=== PATIENT | female | born 1965 | race American Indian/Alaskan Native ===

== ENCOUNTER → 2018-04-02 10:12 | Outpatient (CLI) | payer MEDICAID, SELFPAY ==
--- NOTE | 2018-04-02 | DI.MG.S_ITS ---
BILATERAL DIGITAL SCREENING MAMMOGRAM 3D/2D WITH CAD: 04/02/2018 CLINICAL: Baseline exam. Routine screening. No prior exams were available for comparison. The tissue of both breasts is heterogeneously dense. This may lower the sensitivity of mammography. Current study was also evaluated with a Computer Aided Detection (CAD) system. No significant masses, calcifications, or other findings are seen in either breast. IMPRESSION: NEGATIVE There is no mammographic evidence of malignancy. A 1 year screening mammogram is recommended. This exam was interpreted at Station ID: [id number]. NOTE: For mammograms, a report in lay terms will be sent to the patient. Approximately 15% of breast malignancies will not be visualized mammographically. In the management of a palpable breast mass, a negative mammogram must not discourage biopsy of a clinically suspicious lesion. Electronically Signed By: Tanya peguero/jean claude:04/04/2018 08:33:04 letter sent: Normal Exam ACR BI-RADS Category 1: Negative [id number]
== END ==
PROVIDERS: PCP Family Medicine; Visit Provider Family Medicine
DX: Z12.31 Encounter for screening mammogram for malignant neoplasm of breast (principal)
CPT/HCPCS: 77063; 77067

== ENCOUNTER → 2022-03-25 17:33 | Outpatient (CLI) | payer OTHER, MEDICAID, SELFPAY ==
--- NOTE | 2022-03-25 17:37 | DI.RAD.S_ITS ---
PROCEDURE: XR ABDOMEN 1V INDICATIONS: ABDOMINAL PAIN TECHNIQUE: One view of the abdomen acquired. COMPARISON: None. FINDINGS: Surgical changes and devices: Cholecystectomy clips. Clips in the right pelvis. Suture material in the pelvis. Right lower quadrant ostomy. Bowel: Scattered small bowel gas. No dilated loops of small bowel identified. Stomach is not distended. Soft tissues: No suspicious abdominal calcifications. Visualized solid organ contours appear normal in size. Bones: No suspicious bony lesions. IMPRESSION: Nonobstructive bowel gas pattern. Dictated by: Lenny Dela Cruz M.D. on 03/26/2022 at 8:07 Approved by: Lenny Dela Cruz M.D. on 03/26/2022 at 8:08
[2022-03-25 17:55] LABS: Add Manual Diff / Slide Review NO; Basophils Absolute Auto 0 /uL (0-100); Basophils Percent Auto 0.8 % (0-2); Eosinophils Absolute Auto 100 /uL (0-450); Eosinophils Percent Auto 2.2 % (2-4); Hematocrit 42.6 % (36-46); Lymphocytes Absolute Auto 1000 /uL (1100-4500); Lymphocytes Percent Auto 23.4 % (25-40); Mean Corpuscular HGB Conc 35.2 % (30-36); Mean Corpuscular Hemoglobin 31.3 PG (26-34); Monocytes Absolute Auto 500 /uL (0-900); Monocytes Percent Auto 10.7 % (3-14); Neutrophils Absolute Auto 2600 /uL (1500-7000); Neutrophils Percent Auto 62.9 % (50-75); Platelet Count 199 X10^3/uL (150-400); Red Blood Cell Count 4.79 X10^6/uL (4.0-5.2); Red Cell Distribution Width 12.8 % (11.6-14.8); White Blood Cell Count 4.2 X10^3/uL (4.5-11.0)
[2022-03-25 18:04] LABS: Prothrombin Time 11.2 SECONDS (10.1-12.7)
[2022-03-25 18:07] LABS: PTT Partial Thromboplastin Tim 32 SECONDS (26-36)
[2022-03-25 18:20] LABS: Erythrocyte Sedimentation Rate 9 MM/HR (0-20)
[2022-03-25 18:33] LABS: Alanine Aminotransferase 253 IU/L (<35); Albumin 4.5 g/dL (3.5-5.0); Albumin Globulin Ratio 1.3 (1.0-2.8); Alkaline Phosphatase 75 U/L (38-126); Aspartate Aminotransferase 160 IU/L (14-36); BUN Creatinine Ratio 12.2 (6-22); Bilirubin Total 0.6 mg/dL (0.2-1.3); Blood Urea Nitrogen 12 mg/dL (7-17); Calcium 9.8 mg/dL (8.4-10.2); Carbon Dioxide 31 mmol/L (22-32); Chloride 102 mmol/L (98-107); Estimated Glomerular Filt Rate > 60 mL/min (>60); Gamma Glutamyl Transpeptidase 44 U/L (12-43); Globulin 3.4 g/dL (1.7-4.1); Glucose 110 mg/dL (70-100); HEMOLYSIS < 15 (0-50); Potassium 4.1 mmol/L (3.4-5.1); Sodium 140 mmol/L (137-145); Total Protein 7.9 g/dL (6.3-8.2)
[2022-03-25 18:34] LABS: Transferrin 244 mg/dL (206-381)
[2022-03-25 19:08] LABS: Ferritin 393 ng/mL (11-264)
[2022-03-25 19:22] LABS: Vitamin B12 541 pg/mL (239-931)
[2022-03-27 13:12] LABS: ANA Screen, IFA Negative (.)
== END ==
PROVIDERS: PCP Family Medicine; Referring Provider Family Medicine; Visit Provider Family Medicine
DX: R10.84 Generalized abdominal pain (principal)
CPT/HCPCS: 36415; 74018; 80053; 82607; 82728; 82977; 84466; 85025; 85610; 85651; 85730; 86038

== ENCOUNTER → 2022-03-27 06:52 | Outpatient (CLI) | payer BC, MEDICAID, SELFPAY ==
--- NOTE | 2022-03-27 06:53 | DI.US.S_ITS ---
PROCEDURE: US ABDOMEN COMPLETE INDICATIONS: GENERALIZED PAIN TECHNIQUE: Real-time scanning was performed of the abdominal and retroperitoneal organs, with image documentation. COMPARISON: [facility], CR, XR ABDOMEN 1V, 03/25/2022, 17:56. FINDINGS: Liver: The liver demonstrates minimally increased size. The liver demonstrates generalized moderately increased echogenicity. This decreases ultrasound sensitivity for detection of hepatic masses. However, within the left liver, there is a nonvascular area of relative hypoechogenicity that measures 4.5 x 5.6 x 2.4 cm. Gallbladder: Removed. Biliary ducts: Intrahepatic bile ducts are non-dilated. Extrahepatic bile duct caliber measures 8 mm. Normal is 6-7 mm or less in diameter, or 10 mm or less post-cholecystectomy. Pancreas: Visualized portions of the pancreas are sonographically normal. Spleen: Spleen is normal in size and homogeneous in echotexture. Kidneys: Kidneys are normal in size and echotexture. Right kidney measures 9.4 cm long; left kidney measures 9.5 cm long. No nephrolithiasis. No solid masses. The right proximal ureter is dilated to 15.4 mm. Aorta: Visualized aorta is normal in caliber at less than 3 cm. Iliacs: Not seen, obscured by overlying bowel gas. IVC: Intrahepatic inferior vena cava is patent. Miscellaneous: No free abdominal fluid. Overall exam quality is limited, secondary to bowel gas. IMPRESSION: The right proximal ureter is dilated to 15.4 mm. If clinically appropriate, please consider follow-up dedicated CT for further evaluation. Cholecystectomy, without biliary dilatation. Generalized fatty liver. Likely fatty sparing seen within the left liver. This can be further assessed by CT. Dictated by: Abdiaziz Ceballos M.D. on 03/27/2022 at 9:14 Approved by: Abdiaziz Ceballos M.D. on 03/27/2022 at 9:16
== END ==
PROVIDERS: PCP Family Medicine; Referring Provider Family Medicine; Visit Provider Family Medicine
DX: R10.84 Generalized abdominal pain (principal); K76.0 Fatty (change of) liver, not elsewhere classified
CPT/HCPCS: 76700

== ENCOUNTER 2022-03-28 14:52 | Emergency (ER) | payer BC, MEDICAID, SELFPAY ==
[2022-03-28 14:57] VITALS: BP 140/65; PULSE 86; RESP 18; TEMP 36.7; O2SAT 98; BMI 30.2
[2022-03-28] MEDS: ONDANSETRON 4 MG/2 ML INJ IV (15:05)
[2022-03-28 15:24] LABS: Add Manual Diff / Slide Review NO; Basophils Absolute Auto 0 /uL (0-100); Basophils Percent Auto 0.7 % (0-2); Eosinophils Absolute Auto 100 /uL (0-450); Eosinophils Percent Auto 2.5 % (2-4); Hematocrit 44.3 % (36-46); Hemoglobin 15.2 g/dL (12.0-16.0); Lymphocytes Absolute Auto 1200 /uL (1100-4500); Lymphocytes Percent Auto 24.4 % (25-40); Mean Corpuscular HGB Conc 34.3 % (30-36); Mean Corpuscular Hemoglobin 30.7 PG (26-34); Mean Corpuscular Volume 89.7 fL (80-100); Monocytes Absolute Auto 600 /uL (0-900); Monocytes Percent Auto 11.1 % (3-14); Neutrophils Absolute Auto 3100 /uL (1500-7000); Neutrophils Percent Auto 61.3 % (50-75); Platelet Count 209 X10^3/uL (150-400); Red Blood Cell Count 4.94 X10^6/uL (4.0-5.2); Red Cell Distribution Width 12.7 % (11.6-14.8); White Blood Cell Count 5.1 X10^3/uL (4.5-11.0)
[2022-03-28 15:31] LABS: Alanine Aminotransferase 262 IU/L (<35); Albumin 4.3 g/dL (3.5-5.0); Albumin Globulin Ratio 1.3 (1.0-2.8); Alkaline Phosphatase 65 U/L (38-126); Aspartate Aminotransferase 174 IU/L (14-36); BUN Creatinine Ratio 17.7 (6-22); Bilirubin Total 0.7 mg/dL (0.2-1.3); Blood Urea Nitrogen 17 mg/dL (7-17); Calcium 9.5 mg/dL (8.4-10.2); Carbon Dioxide 31 mmol/L (22-32); Chloride 104 mmol/L (98-107); Estimated Glomerular Filt Rate > 60 mL/min (>60); Globulin 3.4 g/dL (1.7-4.1); Glucose 112 mg/dL (70-100); HEMOLYSIS < 15 (0-50); Lipase 113 U/L (23-300); Potassium 3.9 mmol/L (3.4-5.1); Sodium 140 mmol/L (137-145); Total Protein 7.7 g/dL (6.3-8.2)
--- NOTE | 2022-03-28 16:17 | ED.ABDPAIN ---
HPI - Abdominal Pain <Radhames Key PA-C - Last Filed: 03/28/22 20:00> General Chief Complaint: Abdominal Pain Stated Complaint: right ABD pain nausea and vomiting Time Seen by Provider: 03/28/22 16:16 Source: patient Mode of arrival: Ambulatory History of Present Illness HPI narrative: Patient is a 57-year-old female who presents to the emergency room today with complaint of right-sided abdominal pain that started on Wednesday. Started pain in right lower abdomen and states that she is up to her ribs. She also describes the pain as sharp and stabbing comes and goes. Also admits to having nausea and vomiting for the last 3 days. Patient saw her primary care provider Dr. Aguilera on . Dr. Arevalo examined her and ordered labs chest from and ultrasound. Patient stays Dr. Rodriguez called her informed her she had a kidney stone and that she should report to the emergency room if the pain continues. Also admits to having an ileostomy that was placed in 2014. Has never had this type of pain before and has not taken any medication for the pain. Related Data Previous Rx's Medication Instructions Recorded ondansetron HCl 4 mg tablet 4 mg PO Q8H #14 tabs 03/28/22 oxycodone-acetaminophen 5 mg-325 1 tab PO Q8H PRN pain #10 tabs 03/28/22 mg tablet (Percocet) Allergies Allergy/AdvReac Type Severity Reaction Status Date / Time No Known Drug Allergies Allergy Verified 03/28/22 15:04 Review of Systems <Radhames Key PA-C - Last Filed: 03/28/22 20:00> Review of Systems Narrative: R.O.S.: General: No fever, chills or fatigue. Cardiovascular: No chest pain or palpitations Respiratory: No S.O.B. HEENT: No congestion, ear pain, rhinorrhea, sore throat or tinnitus Gastrointestinal: Right-sided abdominal pain. Nausea with vomiting Skin: No rash or associated abnormalities Musculoskeletal: No pain in muscles or joints, no limitation of range of motion, no paresthesia or numbness. ?? Neurological: Awake, alert and in not apparent distress. No Headaches, changes in vision or other related neurological concerns. Patient History <Radhames Key PA-C - Last Filed: 03/28/22 20:00> Social History Smoking Status: Never smoker Smoking Status: Never smoker alcohol intake frequency: holidays/special occasions only Substance Use Type: does not use Exam <AGNIESZKA Sandoval Last Filed: 03/28/22 20:00> Narrative Exam Narrative: Physical Exam: ? General: normal appearance, well developed, well nourished, alert, and awake. Not in acute distress. ? Head: Normocephalic, no lesions. Chest: Lungs CTAB, no rales, rhonchi or wheezes. ?? Heart: RRR, no murmurs, rubs or gallops. Eyes: PERRLA, EOM's full, conjunctivae clear. ? Neuro: Physiological, no localizing findings, CN3-12 intact. ?? Extremities: Warm, well perfused, FROM, no deformities, no edema. ?? Skin: Normal, no rashes, no lesions noted. ?? PSYCHIATRIC: The mood is good, no blunted affect. Speech is clear. Thought process is linear, thought content is appropriate. The voice is without significant inflection. Gastrointestinal: Soft; tender to palpation in the right lower quadrant; positive for CVA tenderness on the right side. ND; Pos BS with Neg. rebound tenderness. No scars or major deformities noted on Visual Inspection. Initial Vital Signs Initial Vital Signs: Vital Signs Temperature 98.0 F 03/28/22 14:57 Pulse Rate 86 03/28/22 14:57 Respiratory Rate 18 03/28/22 14:57 Blood Pressure 140/65 03/28/22 14:57 Pulse Oximetry 98 03/28/22 14:57 Oxygen Delivery Method 03/28/22 14:57 <Rivera Phelps DO - Last Filed: 03/29/22 01:20> Initial Vital Signs Initial Vital Signs: Vital Signs Temperature 98.0 F 03/28/22 14:57 Pulse Rate 86 03/28/22 14:57 Respiratory Rate 18 03/28/22 14:57 Blood Pressure 140/65 03/28/22 14:57 Pulse Oximetry 98 03/28/22 14:57 Oxygen Delivery Method 03/28/22 14:57 Course <AGNIESZKA Sandoval Last Filed: 03/28/22 20:00> Orders Ordered: ED Orders 03/28/22 16:47 CT abdomen pelvis w con Stat 03/28/22 18:05 XR chest 2V Stat Discontinued Medications Sodium Chloride (Normal Saline 0.9%) 500 mls @ 1,000 mls/hr IV BOLUS ONE Stop: 03/28/22 18:32 Last Admin: 03/28/22 18:22 Dose: Not Given Documented By: WILLIE Sodium Chloride (Normal Saline 0.9%) 1,000 mls @ 1,000 mls/hr IV BOLUS ONE Stop: 03/28/22 19:07 Last Infusion: 03/28/22 19:30 Dose: 1,000 mls/hr Documented By: Admin: 03/28/22 18:20 Dose: 1,000 mls/hr Documented By: ROSS Ketorolac Tromethamine (Ketorolac 30 Mg/Ml Vial) 30 mg IV NOW ONE Stop: 03/28/22 16:47 Last Admin: 03/28/22 16:51 Dose: 30 mg Documented By: IGGY Ketorolac Tromethamine (Ketorolac 30 Mg/Ml Vial) 30 mg IV NOW ONE Stop: 03/28/22 19:48 Last Admin: 03/28/22 19:54 Dose: 30 mg Documented By: ROSS Ondansetron HCl (Ondansetron 4 Mg/2 Ml Inj) 4 mg IV NOW ONE Stop: 03/28/22 15:02 Last Admin: 03/28/22 15:05 Dose: 4 mg Documented By: IGGY Vital Signs Vital signs: Vital Signs - 8 hr 03/28/22 14:57 Temperature 98.0 F Pulse Rate 86 Respiratory Rate 18 Blood Pressure 140/65 Pulse Oximetry 98 Oxygen Delivery Method Room Air <Rivera Phelps DO - Last Filed: 03/29/22 01:20> Orders Ordered: ED Orders 03/28/22 16:47 CT abdomen pelvis w con Stat 03/28/22 18:05 XR chest 2V Stat Discontinued Medications Sodium Chloride (Normal Saline 0.9%) 500 mls @ 1,000 mls/hr IV BOLUS ONE Stop: 03/28/22 18:32 Last Admin: 03/28/22 18:22 Dose: Not Given Documented By: WILLIE Sodium Chloride (Normal Saline 0.9%) 1,000 mls @ 1,000 mls/hr IV BOLUS ONE Stop: 03/28/22 19:07 Last Infusion: 03/28/22 19:30 Dose: 1,000 mls/hr Documented By: Admin: 03/28/22 18:20 Dose: 1,000 mls/hr Documented By: ROSS Ketorolac Tromethamine (Ketorolac 30 Mg/Ml Vial) 30 mg IV NOW ONE Stop: 03/28/22 16:47 Last Admin: 03/28/22 16:51 Dose: 30 mg Documented By: IGGY Ketorolac Tromethamine (Ketorolac 30 Mg/Ml Vial) 30 mg IV NOW ONE Stop: 03/28/22 19:48 Last Admin: 03/28/22 19:54 Dose: 30 mg Documented By: ROSS Ondansetron HCl (Ondansetron 4 Mg/2 Ml Inj) 4 mg IV NOW ONE Stop: 03/28/22 15:02 Last Admin: 03/28/22 15:05 Dose: 4 mg Documented By: IGGY Vital Signs Vital signs: Vital Signs - 8 hr 03/28/22 14:57 Temperature 98.0 F Pulse Rate 86 Respiratory Rate 18 Blood Pressure 140/65 Pulse Oximetry 98 Oxygen Delivery Method Room Air MDM - Abdominal Pain <Radhames Key PA-C - Last Filed: 03/28/22 20:00> Lab Data Result diagrams: 03/28/22 15:00 03/28/22 15:00 Labs: Lab Results 03/28/22 03/28/22 03/28/22 Range/Units 15:00 15:00 16:02 WBC 5.1 (4.5-11.0) X10^3/uL RBC 4.94 (4.0-5.2) X10^6/uL Hgb 15.2 (12.0-16.0) g/dL Hct 44.3 (36-46) % MCV 89.7 (80-100) fL MCH 30.7 (26-34) PG MCHC 34.3 (30-36) % RDW 12.7 (11.6-14.8) % Plt Count 209 (150-400) X10^3/uL Neut % (Auto) 61.3 (50-75) % Lymph % (Auto) 24.4 L (25-40) % Divide % (Auto) 11.1 (3-14) % Eos % (Auto) 2.5 (2-4) % Baso % (Auto) 0.7 (0-2) % Neut # (Auto) 3100 (6889-1265) /uL Lymph # (Auto) 1200 (1785-3636) /uL Divide # (Auto) 600 (0-900) /uL Eos # (Auto) 100 (0-450) /uL Baso # (Auto) 0 (0-100) /uL Sodium 140 (137-145) mmol/L Potassium 3.9 (3.4-5.1) mmol/L Chloride 104 (98-107) mmol/L Carbon Dioxide 31 (22-32) mmol/L BUN 17 (7-17) mg/dL Creatinine 0.96 (0.52-1.04) mg/dL Estimated GFR > 60 (>60) mL/min BUN/Creatinine Ratio 17.7 (6-22) Glucose 112 H (70-100) mg/dL Calcium 9.5 (8.4-10.2) mg/dL Total Bilirubin 0.7 (0.2-1.3) mg/dL AST 174 H (14-36) IU/L ALT 262 H (<35) IU/L Alkaline Phosphatase 65 (38-126) U/L Total Protein 7.7 (6.3-8.2) g/dL Albumin 4.3 (3.5-5.0) g/dL Globulin 3.4 (1.7-4.1) g/dL Albumin/Globulin Ratio 1.3 (1.0-2.8) Lipase 113 (23-300) U/L Urine RBC None seen (0-5/HPF) Urine WBC 5-10/hpf H (0-5/HPF) Urine Bacteria Moderate (10-30) H (None) Ur Culture Indicated? Culture not indicate Point of care testing: Point of Care Testing Test Results Not applicable Urine Dip Bedside Urine Glucose Negative Bedside Urine Bilirubin - Negative Bedside Urine Ketone +/- 5 Urine Specific [place] 1.030 Bedside Urine Occult Blood ++ Bedside Urine pH 6.0 Bedside Urine Protein - Negative Bedside Urine Urobilinogen +/- 1mg Bedside Urine Nitrite - Negative Bedside Urine Leukocytes - Negative Esterase Imaging Data US - abdomen: Radiologist's Impression: PROCEDURE:? US ABDOMEN COMPLETE ? INDICATIONS:? GENERALIZED PAIN ? TECHNIQUE:? Real-time scanning was performed of the abdominal and retroperitoneal organs, with image documentation.? ? COMPARISON:? [facility], CR, XR ABDOMEN 1V, 03/25/2022, 17:56. ? FINDINGS:? ? Liver:? The liver demonstrates minimally increased size. The liver demonstrates generalized moderately increased echogenicity. This decreases ultrasound sensitivity for detection of hepatic masses.? However, within the left liver, there is a nonvascular area of relative hypoechogenicity that measures 4.5 x 5.6 x 2.4 cm. ? Gallbladder:? Removed.? ? Biliary ducts:? Intrahepatic bile ducts are non-dilated.? Extrahepatic bile duct caliber measures 8 mm.? Normal is 6-7 mm or less in diameter, or 10 mm or less post-cholecystectomy.? ? Pancreas:? Visualized portions of the pancreas are sonographically normal.? ? Spleen:? Spleen is normal in size and homogeneous in echotexture.? ? Kidneys:? Kidneys are normal in size and echotexture.? Right kidney measures 9.4 cm long; left kidney measures 9.5 cm long.? No nephrolithiasis.? No solid masses.? ? The right proximal ureter is dilated to 15.4 mm. ? Aorta:? Visualized aorta is normal in caliber at less than 3 cm.? ? Iliacs:? Not seen, obscured by overlying bowel gas. ? IVC:? Intrahepatic inferior vena cava is patent.? ? Miscellaneous:? No free abdominal fluid.? ? Overall exam quality is limited, secondary to bowel gas. ? ? ? IMPRESSION:? The right proximal ureter is dilated to 15.4 mm.? If clinically appropriate, please consider follow-up dedicated CT for further evaluation.? ? Cholecystectomy, without biliary dilatation. ? Generalized fatty liver.? Likely fatty sparing seen within the left liver.? This can be further assessed by CT. ? ? ? Dictated by: Abdiaziz Ceballos M.D. on 03/27/2022 at 9:14 ? ? Approved by: Abdiaziz Ceballos M.D. on 03/27/2022 at 9:16 ? CT scan - abdomen/pelvis: Radiologist's Impression: PROCEDURE:? CT ABDOMEN PELVIS W CON ? INDICATIONS:? Abdominal pain ? TECHNIQUE:? After the administration of intravenous contrast, axial sections acquired from the lung bases to the pubic symphysis.? Coronal and sagittal reformats were performed.? For radiation dose reduction, the following was used:? automated exposure control, adjustment of mA and/or kV according to patient size.? ? COMPARISON:? None. ? FINDINGS:? Image quality:? Excellent.? ? Lung bases:? Unremarkable. Heart:? No significant findings. ? ABDOMEN: Liver:? Hepatic steatosis. Gallbladder:? Surgical clips in right upper quadrant. Biliary ducts:? Unremarkable.? ? Pancreas:? Unremarkable.? ? Spleen:? Unremarkable.? ? Adrenal Glands:? Unremarkable.? ? Kidneys and Ureters:? Unremarkable.? ? ? Stomach and Bowel:? The stomach is unremarkable.? Patient is status post colectomy with ileostomy.? No bowel wall thickening or evidence of obstruction. Peritoneum:? No abnormal intraperitoneal fluid.? No free air.? ? Ventral Wall: ? No hernias.? Abdominal Nodes:? No retroperitoneal or mesenteric adenopathy by size criteria.? Vessels:? Aorta and inferior vena cava are normal in size.? ? PELVIS: Pelvic Organs:? The uterus is not identified.? ? Bladder:? Unremarkable.? ? Pelvic Nodes: No enlarged lymph nodes.? Miscellaneous: No hernias are seen. ? ? ? Bones:? No concerning osseous lesions. ? ? IMPRESSION:? 1. No acute intra-abdominal or intrapelvic findings to explain patient's symptoms. 2. Sequela of prior colectomy and ileostomy formation. 3. Hepatic steatosis.? ? ? Dictated by: Nixon Diego M.D. on 03/28/2022 at 16:41 ? ? Approved by: Nixon Diego M.D. on 03/28/2022 at 16:47 ? Chest x-ray: Radiologist's Impression: PROCEDURE:? XR CHEST 2V ? INDICATIONS:? chest pain ? TECHNIQUE:? 2 views of the chest were acquired.? ? COMPARISON:? None. ? FINDINGS:? ? Surgical changes and devices:? Cholecystectomy clips. ? Lungs and pleura:? Lungs are clear.? No pleural effusions or pneumothorax.? ? Mediastinum:? Mediastinal contours are normal.? Heart size is normal.? ? Bones and chest wall:? No suspicious bony abnormalities.? Soft tissues appear unremarkable.? ? IMPRESSION:? No acute pulmonary process. ? ? Dictated by: Poppy Arroyo M.D. on 03/28/2022 at 18:35 ? ? Approved by: Poppy Arroyo M.D. on 03/28/2022 at 18:35 ? MDM Narrative Medical decision making narrative: Patient is a 57-year-old female who presents to the emergency room today with complaint of right-sided abdominal pain since Wednesday of last week. Abdominal pain feels like a shooting stabbing pain that radiates up into the right rib. Saw her primary care provider about this on who ordered labs x-ray and ultrasound. Patient states ultrasound reveals she had a kidney stone and that her primary care provider advised her to report to the emergency room if her pain did not subside. Patient states that is why she is here today. Upon review of the ultrasound revealed the patient to have a dilated right proximal ureter. CT scan of the abdomen and pelvis was ordered and results were unremarkable except for hepatic steatosis. Labs were ordered also revealed an AST of 174 and an ALT of 262. She stated she was not aware of an elevation of her liver labs. She however stated she has an ileostomy and states her GI provider is at the [facility]. I offered a referral to our GI provider here and patient states she wants to follow up with her GI provider in this regard. Patient discharged counseled on potential emergent concerns reasons to return to the ER. Patient advised to follow-up with her GI provider and/or her PCPs provider with any nonemergent concerns. Patient agrees with plan <Rivera Phelps, DO - Last Filed: 03/29/22 01:20> Lab Data Labs: Lab Results 03/28/22 03/28/22 03/28/22 Range/Units 15:00 15:00 16:02 WBC 5.1 (4.5-11.0) X10^3/uL RBC 4.94 (4.0-5.2) X10^6/uL Hgb 15.2 (12.0-16.0) g/dL Hct 44.3 (36-46) % MCV 89.7 (80-100) fL MCH 30.7 (26-34) PG MCHC 34.3 (30-36) % RDW 12.7 (11.6-14.8) % Plt Count 209 (150-400) X10^3/uL Neut % (Auto) 61.3 (50-75) % Lymph % (Auto) 24.4 L (25-40) % Divide % (Auto) 11.1 (3-14) % Eos % (Auto) 2.5 (2-4) % Baso % (Auto) 0.7 (0-2) % Neut # (Auto) 3100 (7792-8675) /uL Lymph # (Auto) 1200 (4030-7716) /uL Divide # (Auto) 600 (0-900) /uL Eos # (Auto) 100 (0-450) /uL Baso # (Auto) 0 (0-100) /uL Sodium 140 (137-145) mmol/L Potassium 3.9 (3.4-5.1) mmol/L Chloride 104 (98-107) mmol/L Carbon Dioxide 31 (22-32) mmol/L BUN 17 (7-17) mg/dL Creatinine 0.96 (0.52-1.04) mg/dL Estimated GFR > 60 (>60) mL/min BUN/Creatinine Ratio 17.7 (6-22) Glucose 112 H (70-100) mg/dL Calcium 9.5 (8.4-10.2) mg/dL Total Bilirubin 0.7 (0.2-1.3) mg/dL AST 174 H (14-36) IU/L ALT 262 H (<35) IU/L Alkaline Phosphatase 65 (38-126) U/L Total Protein 7.7 (6.3-8.2) g/dL Albumin 4.3 (3.5-5.0) g/dL Globulin 3.4 (1.7-4.1) g/dL Albumin/Globulin Ratio 1.3 (1.0-2.8) Lipase 113 (23-300) U/L Urine RBC None seen (0-5/HPF) Urine WBC 5-10/hpf H (0-5/HPF) Urine Bacteria Moderate (10-30) H (None) Ur Culture Indicated? Culture not indicate Point of care testing: Point of Care Testing Test Results Not applicable Urine Dip Bedside Urine Glucose Negative Bedside Urine Bilirubin - Negative Bedside Urine Ketone +/- 5 Urine Specific [place] 1.030 Bedside Urine Occult Blood ++ Bedside Urine pH 6.0 Bedside Urine Protein - Negative Bedside Urine Urobilinogen +/- 1mg Bedside Urine Nitrite - Negative Bedside Urine Leukocytes - Negative Esterase Discharge Plan Departure Patient Disposition: Home Clinical Impression: Abdominal pain Instructions: DI for Abdominal Pain-Adult Activity Restrictions/Additional Instructions: *You have been diagnosed with hepatic steatosis and abdominal pain. Ordered for pain and Zofran for nausea. For your wishes I not referred due to her GI providers. I suggested follow-up with your GI provider in regards to your hepatic steatosis. Please return to the emergency room for any emergent concerns arise. Emergent concerns to name a few would be an elevated temp temperature above 104 that is not lessened with Tylenol. Intractable pain or intractable nausea and vomiting. *What to do: *Please continue to take your regular medications as directed. [x] New medication prescriptions sent to your pharmacy: [ ] [ ] New medication written as a paper prescription [ ] No new medications given *Please follow up with your primary care provider in 2-3 days, call for an appointment. Let them know you were seen in the Emergency Department and that we ask that you be seen in follow up. We will electronically transmit a record of today's note if your PCP is in our system *If you do not have a primary care provider please contact the [facility] Resource line at [phone]. They will ask some questions about your medical history and help get you set up with a doctor in the community. *Return to Emergency Department if you should have any new, worsening or concerning symptoms, such as [fever greater than 101 F, shaking chills, worsening pain, persistent vomiting or other bothersome symptoms] Prescriptions: New ondansetron HCl 4 mg tablet 4 mg PO Q8H Qty: 14 0RF oxycodone-acetaminophen [Percocet] 5-325 mg tablet 1 tab PO Q8H PRN (Reason: pain) Qty: 10 0RF Referrals: Joanne Arevalo MD [Primary Care Provider] - Visit Report Forms: Patient Portal/API <Rivera Phelps DO - Last Filed: 03/29/22 01:20> Cosign ED Attending Ogature Attestation: I was immediately available in the department for consultation. This documentation has been reviewed and I agree with assessment and plan. Supervised by Rivera Phelps DO
[2022-03-28 16:18] LABS: Bacteria Urine Moderate (10-30); RBC Urine None Seen (0-5/HPF); WBC Urine 5-10/HPF (0-5/HPF)
--- NOTE | 2022-03-28 16:47 | DI.CT.S_ITS ---
PROCEDURE: CT ABDOMEN PELVIS W CON INDICATIONS: Abdominal pain TECHNIQUE: After the administration of intravenous contrast, axial sections acquired from the lung bases to the pubic symphysis. Coronal and sagittal reformats were performed. For radiation dose reduction, the following was used: automated exposure control, adjustment of mA and/or kV according to patient size. COMPARISON: None. FINDINGS: Image quality: Excellent. Lung bases: Unremarkable. Heart: No significant findings. ABDOMEN: Liver: Hepatic steatosis. Gallbladder: Surgical clips in right upper quadrant. Biliary ducts: Unremarkable. Pancreas: Unremarkable. Spleen: Unremarkable. Adrenal Glands: Unremarkable. Kidneys and Ureters: Unremarkable. Stomach and Bowel: The stomach is unremarkable. Patient is status post colectomy with ileostomy. No bowel wall thickening or evidence of obstruction. Peritoneum: No abnormal intraperitoneal fluid. No free air. Ventral Wall: No hernias. Abdominal Nodes: No retroperitoneal or mesenteric adenopathy by size criteria. Vessels: Aorta and inferior vena cava are normal in size. PELVIS: Pelvic Organs: The uterus is not identified. Bladder: Unremarkable. Pelvic Nodes: No enlarged lymph nodes. Miscellaneous: No hernias are seen. Bones: No concerning osseous lesions. IMPRESSION: 1. No acute intra-abdominal or intrapelvic findings to explain patient's symptoms. 2. Sequela of prior colectomy and ileostomy formation. 3. Hepatic steatosis. Dictated by: Nixon Diego M.D. on 03/28/2022 at 16:41 Approved by: Nixon Diego M.D. on 03/28/2022 at 16:47
[2022-03-28] MEDS: KETOROLAC 30 MG/ML VIAL IV ×2 (16:51→19:54)
--- NOTE | 2022-03-28 18:05 | DI.RAD.S_ITS ---
PROCEDURE: XR CHEST 2V INDICATIONS: chest pain TECHNIQUE: 2 views of the chest were acquired. COMPARISON: None. FINDINGS: Surgical changes and devices: Cholecystectomy clips. Lungs and pleura: Lungs are clear. No pleural effusions or pneumothorax. Mediastinum: Mediastinal contours are normal. Heart size is normal. Bones and chest wall: No suspicious bony abnormalities. Soft tissues appear unremarkable. IMPRESSION: No acute pulmonary process. Dictated by: Poppy Arroyo M.D. on 03/28/2022 at 18:35 Approved by: Poppy Arroyo M.D. on 03/28/2022 at 18:35
[2022-03-28] MEDS: SODIUM CHLORIDE 0.9% 1,000 ML 1000 ML IV (18:20)
== END 2022-03-28 20:03 | disposition home or self-care (01) ==
PROVIDERS: Emergency Medicine; Emergency Provider Physician Assistant; PCP Family Medicine
DX: R10.9 Unspecified abdominal pain (principal); R11.2 Nausea with vomiting, unspecified; R07.9 Chest pain, unspecified
CPT/HCPCS: 36415; 71046; 74177; 80053; 81003; 81015; 81025; 83690; 85025; 96361; 96374; 96375; 96376; 99284; J1885; J2405; Q9967

== ENCOUNTER → 2022-04-10 06:50 | Outpatient (CLI) | payer BC, MEDICAID, SELFPAY ==
[2022-04-10 08:38] LABS: Add Manual Diff / Slide Review NO; Basophils Absolute Auto 0 /uL (0-100); Eosinophils Absolute Auto 100 /uL (0-450); Eosinophils Percent Auto 3.1 % (2-4); Hematocrit 41.1 % (36-46); Hemoglobin 14.6 g/dL (12.0-16.0); Lymphocytes Absolute Auto 1100 /uL (1100-4500); Lymphocytes Percent Auto 30.8 % (25-40); Mean Corpuscular HGB Conc 35.5 % (30-36); Mean Corpuscular Hemoglobin 31.3 PG (26-34); Mean Corpuscular Volume 88.1 fL (80-100); Monocytes Absolute Auto 300 /uL (0-900); Monocytes Percent Auto 9.5 % (3-14); Neutrophils Absolute Auto 2000 /uL (1500-7000); Neutrophils Percent Auto 55.6 % (50-75); Platelet Count 197 X10^3/uL (150-400); Red Blood Cell Count 4.67 X10^6/uL (4.0-5.2); Red Cell Distribution Width 12.4 % (11.6-14.8); White Blood Cell Count 3.5 X10^3/uL (4.5-11.0)
[2022-04-10 09:02] LABS: Alanine Aminotransferase 342 IU/L (<35); Albumin 4.1 g/dL (3.5-5.0); Albumin Globulin Ratio 1.4 (1.0-2.8); Alkaline Phosphatase 72 U/L (38-126); Amylase 68 U/L (30-110); Aspartate Aminotransferase 209 IU/L (14-36); BUN Creatinine Ratio 14.9 (6-22); Bilirubin Total 0.7 mg/dL (0.2-1.3); Bilirubin Unconjugated 0.6 mg/dL (0.0-1.1); Blood Urea Nitrogen 14 mg/dL (7-17); Calcium 9.6 mg/dL (8.4-10.2); Carbon Dioxide 29 mmol/L (22-32); Chloride 102 mmol/L (98-107); Estimated Glomerular Filt Rate > 60 mL/min (>60); Globulin 2.9 g/dL (1.7-4.1); Glucose 101 mg/dL (70-100); HEMOLYSIS < 15 (0-50); Lipase 125 U/L (23-300); Potassium 4.3 mmol/L (3.4-5.1); Sodium 140 mmol/L (137-145)
[2022-04-10 09:05] LABS: High Sensitivity CRP - Cardiac 1.3 mg/L (1.0-3.0)
[2022-04-10 09:34] LABS: Hepatitis B Surface Antigen NEGATIVE s/c (NEGATIVE)
[2022-04-10 09:36] LABS: Ferritin 788 ng/mL (11-264)
[2022-04-10 09:49] LABS: Hep C Virus Ab w/Reflex Quant NEGATIVE s/c (NEGATIVE)
[2022-04-11 02:15] LABS: Hepatitis A Antibody Total Positive (Negative)
[2022-04-11 08:16] LABS: Hepatitis B Core AB w/Reflex Negative (Negative); Hepatitis B Surf Ab Qualitativ Reactive (.)
[2022-04-12 13:08] LABS: Smooth Muscle Antibody 4 Units (0-19)
[2022-04-14 17:19] LABS: ANA Screen, IFA Negative (.)
== END ==
PROVIDERS: PCP Family Medicine; Referring Provider Internal Medicine Gastroenterology; Visit Provider Internal Medicine Gastroenterology
DX: R94.5 Abnormal results of liver function studies (principal); R10.9 Unspecified abdominal pain
CPT/HCPCS: 80048; 80076; 82150; 82728; 83516; 83690; 85025; 86038; 86140; 86704; 86706; 86708; 86803; 87340